=== PATIENT | male | born 2000 | race Caucasian/White ===

== ENCOUNTER 2020-10-11 20:39 | Emergency (ER) | payer OTHER, SELFPAY ==
[2020-10-11 20:43] VITALS: BP 122/59; PULSE 65; RESP 16; TEMP 36.3; O2SAT 98
--- NOTE | 2020-10-11 21:56 | ED_ITS ---
HPI - Eye Problem General Chief complaint: Eye Problems Stated complaint: right eye pain Time Seen by Provider: 10/11/20 21:15 Source: patient Mode of arrival: ambulatory Limitations: no limitations History of Present Illness HPI Narrative: Patient is a 19-year-old male complaining of possible foreign body in the right eye. Patient states that he was grinding fiberglass and felt like something went inside his eye. Denies any other pain or injury. Denies any blurred or loss of vision. Related Data Allergies Allergy/AdvReac Type Severity Reaction Status Date / Time No Known Allergies Allergy Unverified 08/21/14 22:39 Review of Systems Review of Systems: All systems reviewed & are unremarkable except as noted in HPI and below PMFSH Family History Family History (Updated 12/22/15 @ 23:19 by DOCTOR UNKNOWN) Father Hypertension Family history of diabetes mellitus in first degree relative Grandparent Hypertension Family history of lung cancer Social History Social History Smoking status: Never smoker Alcohol intake: never Comments Past medical history: None Social history: Non-smoker no EtOH or drug use Exam Const: General: healthy appearing, no acute distress and alert Nutritional Appearance: well nourished Orientation/consciousness: patient oriented x3 HENMT: Head: normal to inspection General nose exam: Normal nares present Face and sinus: normal facial exam Mouth: Yes moist mucous membranes Eyes: Conjunctivae: conjunctivae normal (Injected, right eye) Pupils: Equal, round and reactive pupils present EOM: EOMs intact bilaterally Other: Corneal abrasion right eye Course Vital Signs Vital signs: Vital Signs Temperature 36.3 C L 10/11/20 20:43 Pulse Rate 65 10/11/20 20:43 Respiratory Rate 16 10/11/20 20:43 Blood Pressure 122/59 L 10/11/20 20:43 Pulse Oximetry 98 10/11/20 20:43 Temperature 36.3 C L 10/11/20 20:43 Pulse Rate 65 10/11/20 20:43 Respiratory Rate 16 10/11/20 20:43 Blood Pressure 122/59 L 10/11/20 20:43 Pulse Oximetry 98 10/11/20 20:43 Procedures FB Removal Eye Foreign Body #1: Foreign Body Removal Date: 10/11/20 Foreign Body Removal Time: 22:00 Time Out performed: Yes Location: eye (R) Topical anesthetic used: tetracaine Evidence of corneal penetration: No Foreign Body Removal Narrative: No foreign body seen. Patient has corneal abrasion Discharge Plan Discharge Clinical Impression: Corneal abrasion Qualifiers: Encounter type: initial encounter Laterality: right Qualified Code(s): S05.01XA - Injury of conjunctiva and corneal abrasion without foreign body, right eye, initial encounter Patient Disposition: Home, Self-Care Condition: Improved Instructions: Antibiotic Form, Corneal Abrasion (ED) Prescriptions: New erythromycin 5 mg/gram (0.5 %) ointment 1.25 cm EACH EYE 6XD Qty: 3.5 RF: 0 Follow-up/Referrals: PHYSICIAN,INFRASTRUCTURE ENGINEER [Primary Care Provider] - Time of Disposition: 22:01
[2020-10-11] MEDS: ERYTHROMYCIN OPHTH OINTMENT 1 GM TUBE 1 APPLIC EACH EYE (22:25)
== END 2020-10-11 22:29 | disposition home or self-care (01) ==
PROVIDERS: Emergency Provider Emergency Medicine
DX: S05.01XA Injury of conjunctiva and corneal abrasion without foreign body, right eye, initial encounter (principal); X58.XXXA Exposure to other specified factors, initial encounter
CPT/HCPCS: 99283; A9270

== ENCOUNTER 2024-09-17 08:12 | Emergency (ER) | payer OTHER, SELFPAY ==
[2024-09-17 08:23] VITALS: BP 157/88; PULSE 68; RESP 20; TEMP 36.3; O2SAT 99
--- NOTE | 2024-09-17 08:30 | ED_ITS ---
HPI - General Adult General Chief complaint: Unspecified Stated complaint: work note stomach issues Time Seen by Provider: 09/17/24 08:30 Source: patient Mode of arrival: ambulatory Limitations: no limitations History of Present Illness HPI narrative: 23-year-old male presents with complaint diarrhea starting early this morning. Unable to go to work due to diarrhea. 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 No abdominal pain. States that diarrhea is improving. States diarrhea caused from something he ate. Patient is well-appearing. All systems reviewed and negative except as noted above. Related Data Home Medications ?Medication ?Instructions ?Recorded ?Confirmed ?Last Taken ?Type No Home Medications 09/03/21 07/08/24 Unknown History Allergies Allergy/AdvReac Type Severity Reaction Status Date / Time No Known Allergies Allergy Verified 09/17/24 08:20 Review of Systems Review of Systems: CONSTITUTIONAL: Denies fever, chills, or sweats. EYES: Denies visual changes, redness, or discharge. ENT: Denies rhinorrhea, congestion, sore throat, or otalgia. CARDIOVASCULAR: Denies chest pain, palpitations, or edema. RESPIRATORY: Denies cough or dyspnea. GASTROINTESTINAL: Denies abdominal pain, nausea, vomiting . Reports diarrhea. GENITOURINARY: Denies dysuria or hematuria. SKIN: Denies rash or itching. MUSCULOSKELETAL: Denies back pain, joint pain, or myalgia. NEUROLOGIC: Denies headache, numbness, or weakness. PSYCHIATRIC: Denies anxiety or depression. All other systems reviewed are negative, except as documented in HPI. [facility] Past Medical History Medical History BMI 36.0-36.9,adult Encounter for immunization (03/05/17) Family History Family History Father Hypertension Family history of diabetes mellitus in first degree relative Diabetes mellitus Grandparent Hypertension Family history of lung cancer Mother Diabetes mellitus Sibling No problems noted. Social History Social History Smoking status: Current every day smoker (vapes) Tobacco type: e-cigarettes/vaping Second hand tobacco smoke exposure: Yes Alcohol intake: current Substance use: never Substance use type: does not use Do You Feel Safe in your Home?: Yes Lack of Transportation: No Lack of Food: Never True Current Housing: I Have Housing Concerned About Future Housing: No Difficulty Paying Gas/Electric Bills: No Difficulty Paying for Meds: No Currently Unemployed: No Education: High School Diploma/GED Difficulty w/ Childcare or Family Care: No Living arrangements: with family Occupation/Education: occupation 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 There is no relevant family history pertinent to the presenting complaint. Exam Narrative: GENERAL: This is a well-nourished, well-developed patient, in no apparent distress. HEAD: normocephalic, atraumatic. EYES: PERRL. Sclera clear/white. Vision is grossly intact. EARS: External ears normal NOSE: External nose normal NECK: Neck supple, non-tender without lymphadenopathy, masses or thyromegaly. CARDIOVASCULAR: Regular rate and rhythm without murmurs, gallops, or rubs. RESPIRATORY: Clear to auscultation. Breath sounds equal bilaterally. No wheezes, rales, or rhonchi. GASTROINTESTINAL: Abdomen soft, non-tender, nondistended. Bowel sounds are active. No hepato-splenomegaly, or palpable masses. No guarding. SKIN: warm, Dry, intact with no suspicious lesions or rash, good texture and turgor. NEURO: awake, alert, and oriented to person, place and time. There were no obvious focal neurologic abnormalities. EXTREMITIES: No joint tenderness, effusion, or edema noted. Course Course Level of Care: Express Care Visit Vital Signs Vital signs: Vital Signs Temperature 36.3 C L 09/17/24 08:23 Pulse Rate 68 09/17/24 08:23 Respiratory Rate 20 09/17/24 08:23 Blood Pressure 157/88 H 09/17/24 08:23 Pulse Oximetry 99 09/17/24 08:23 Oxygen Delivery Room Air 09/17/24 08:23 Temperature 36.3 C L 09/17/24 08:23 Pulse Rate 68 09/17/24 08:23 Respiratory Rate 20 09/17/24 08:23 Blood Pressure 157/88 H 09/17/24 08:23 Pulse Oximetry 99 09/17/24 08:23 Oxygen Delivery Room Air 09/17/24 08:23 reviewed Medical Decision Making MDM Narrative Medical decision making narrative: patient is well-appearing, nontoxic. No tenderness on exam. Patient reports that diarrhea is improving. Here for work note. Please be advised this is a medical document. It is intended for [id number] communication. It is written in medical language and may contain unfamiliar abbreviations or verbiage. Medical documents are intended to carry relevant information, facts as evident, and the clinical opinion of the practitioner at the time of the encounter. This report may have been done utilizing a voice recognition system. Attempts have been made to correct errors. However, there may be uncorrected grammatical, spelling, and recognition errors present. The file time of this note does not necessarily represent the time of service. Vital Signs Vital Signs: Vital Signs Temperature 36.3 C L 09/17/24 08:23 Pulse Rate 68 09/17/24 08:23 Respiratory Rate 20 09/17/24 08:23 Blood Pressure 157/88 H 09/17/24 08:23 Pulse Oximetry 99 09/17/24 08:23 Oxygen Delivery Room Air 09/17/24 08:23 Temperature 36.3 C L 09/17/24 08:23 Pulse Rate 68 09/17/24 08:23 Respiratory Rate 20 09/17/24 08:23 Blood Pressure 157/88 H 09/17/24 08:23 Pulse Oximetry 99 09/17/24 08:23 Oxygen Delivery Room Air 09/17/24 08:23 Discharge Plan Discharge Clinical Impression: Diarrhea Patient Disposition: Home Condition: Stable Instructions: Acute Diarrhea (ED) Patient Language: Nepalese Prescriptions: No Action No Home Medications Follow-up/Referrals: Jasmeet Parekh MD [Primary Care Provider] - Stand Alone Forms: Work/School Release IP Time of Disposition: 08:34
== END 2024-09-17 08:40 | disposition home or self-care (01) ==
PROVIDERS: Emergency Provider Nurse Practitioner Family; PCP Family Medicine
DX: R19.7 Diarrhea, unspecified (principal); F17.290 Nicotine dependence, other tobacco product, uncomplicated
CPT/HCPCS: 99211; G0463

== ENCOUNTER 2024-11-12 08:35 | Emergency (ER) | payer OTHER, SELFPAY ==
[2024-11-12 08:49] VITALS: BP 136/82; PULSE 77; RESP 20; TEMP 36.7; O2SAT 99
--- NOTE | 2024-11-12 09:00 | ED_ITS ---
HPI - Nausea/Vomiting/Diarrhea General Chief complaint: Nausea/Vomiting/Diarrhea Stated complaint: Vomting/Diarrhea Time Seen by Provider: 11/12/24 09:00 Source: patient Mode of arrival: ambulatory Limitations: no limitations History of Present Illness HPI Narrative: 23-year-old male presents with complaint of nausea vomiting diarrhea starting this morning upon awakening. Patient states he has vomited twice and is now having loose stools. Patient reports history lactose intolerance. States he ate a lot of case toe last night in thinks symptoms are related to that. 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 Requesting work note. All systems reviewed and negative except as noted above. Related Data Allergies Allergy/AdvReac Type Severity Reaction Status Date / Time No Known Allergies Allergy Verified 11/12/24 09:10 Review of Systems Review of Systems: CONSTITUTIONAL: Denies fever, chills, or sweats. EYES: Denies visual changes, redness, or discharge. ENT: Denies rhinorrhea, congestion, sore throat, or otalgia. CARDIOVASCULAR: Denies chest pain, palpitations, or edema. RESPIRATORY: Denies cough or dyspnea. GASTROINTESTINAL: Denies abdominal pain . Reports nausea, vomiting, or carmina rrhea. GENITOURINARY: Denies dysuria or hematuria. SKIN: Denies rash or itching. MUSCULOSKELETAL: Denies back pain, joint pain, or myalgia. NEUROLOGIC: Denies headache, numbness, or weakness. PSYCHIATRIC: Denies anxiety or depression. All other systems reviewed are negative, except as documented in HPI. [facility] Past Medical History Medical History BMI 36.0-36.9,adult Encounter for immunization (03/05/17) Family History Family History Father Hypertension Family history of diabetes mellitus in first degree relative Diabetes mellitus Grandparent Hypertension Family history of lung cancer Mother Diabetes mellitus Sibling No problems noted. Social History Social History Smoking status: Current every day smoker (vapes) Tobacco type: e-cigarettes/vaping Second hand tobacco smoke exposure: Yes Alcohol intake: current Substance use: never Substance use type: does not use Do You Feel Safe in your Home?: Yes Lack of Transportation: No Lack of Food: Never True Current Housing: I Have Housing Concerned About Future Housing: No Difficulty Paying Gas/Electric Bills: No Difficulty Paying for Meds: No Currently Unemployed: No Education: High School Diploma/GED Difficulty w/ Childcare or Family Care: No Living arrangements: with family Occupation/Education: occupation 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 There is no relevant family history pertinent to the presenting complaint. Exam Narrative: GENERAL: This is a well-nourished, well-developed patient, in no apparent distress. HEAD: normocephalic, atraumatic. EYES: PERRL. Sclera clear/white. Vision is grossly intact. EARS: External ears normal NOSE: External nose normal NECK: Neck supple, non-tender without lymphadenopathy, masses or thyromegaly. CARDIOVASCULAR: Regular rate and rhythm without murmurs, gallops, or rubs. RESPIRATORY: Clear to auscultation. Breath sounds equal bilaterally. No wheezes, rales, or rhonchi. GASTROINTESTINAL: Abdomen soft, non-tender, nondistended. Bowel sounds are active. No hepato-splenomegaly, or palpable masses. No guarding. SKIN: warm, Dry, intact with no suspicious lesions or rash, good texture and turgor. NEURO: awake, alert, and oriented to person, place and time. There were no obvious focal neurologic abnormalities. EXTREMITIES: No joint tenderness, effusion, or edema noted. Course Course Level of Care: Express Care Visit Vital Signs Vital signs: Vital Signs Temperature 36.7 C 11/12/24 08:49 Pulse Rate 77 11/12/24 08:49 Respiratory Rate 20 11/12/24 08:49 Blood Pressure 136/82 11/12/24 08:49 Pulse Oximetry 99 11/12/24 08:49 Oxygen Delivery Room Air 11/12/24 08:49 Temperature 36.7 C 11/12/24 08:49 Pulse Rate 77 11/12/24 08:49 Respiratory Rate 20 11/12/24 08:49 Blood Pressure 136/82 11/12/24 08:49 Pulse Oximetry 99 11/12/24 08:49 Oxygen Delivery Room Air 11/12/24 08:49 reviewed MDM - Nausea/Vomiting/Diarrhea MDM Narrative Medical decision making narrative: patient is well-appearing, nontoxic. No nausea vomiting or diarrhea while At Express Care. no abdominal tenderness on exam. Recommend hydration, rest. Will see primary care physician if symptoms not improving. Differential Diagnosis Differential diagnosis: Likely food poisoning, gastroenteritis and dehydration Discharge Plan Discharge Clinical Impression: Nausea vomiting and diarrhea Patient Disposition: Home Condition: Stable Instructions: Acute Nausea and Vomiting (ED) Additional Instructions: take medications as prescribed. This medication may cause constipation and abdominal bloating. Drink at least 64 oz water a day. See your doctor if symptoms are not improving. Patient Language: Cymraes Prescriptions: New ondansetron 4 mg tablet,disintegrating 4 mg PO Q8H PRN (Reason: nausea and vomiting) Qty: 12 0RF Follow-up/Referrals: Jasmeet Parekh MD [Primary Care Provider] - Stand Alone Forms: Work/School Release IP Time of Disposition: 09:05
== END 2024-11-12 09:15 | disposition home or self-care (01) ==
PROVIDERS: Emergency Provider Nurse Practitioner Family; PCP Family Medicine
DX: R11.2 Nausea with vomiting, unspecified (principal); R19.7 Diarrhea, unspecified; F17.290 Nicotine dependence, other tobacco product, uncomplicated
CPT/HCPCS: 99213; G0463

== ENCOUNTER 2025-02-16 08:39 | Emergency (ER) | payer OTHER, SELFPAY ==
[2025-02-16 08:49] VITALS: BP 135/89; PULSE 70; RESP 16; TEMP 36.7; O2SAT 99
--- NOTE | 2025-02-16 09:26 | ED_ITS ---
HPI - General Adult General Chief complaint: Nausea/Vomiting/Diarrhea Stated complaint: VOMITING/DIARRHEA Source: patient Mode of arrival: ambulatory Limitations: no limitations History of Present Illness HPI narrative: patient is a pleasant 24-year-old male presenting with complaint of nausea, vomiting, diarrhea. Symptoms began last night. He denies presence of blood in stool or emesis. denies mucus in stool. He does report that his girlfriend had similar symptoms prior to onset of his symptoms, girlfriend works around young children. No recent antibiotic use. No recent travel. No known exposure to e xpired foods. No treatment initiated prior to arrival. Does report significant improvement in symptoms since onset. 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 No additional complaints. Related Data Allergies Allergy/AdvReac Type Severity Reaction Status Date / Time No Known Allergies Allergy Verified 02/16/25 08:59 Review of Systems Review of Systems: CONSTITUTIONAL: Denies body aches, fever, chills, or sweats. EYES: Denies visual changes, redness, or discharge. ENT: Denies rhinorrhea, congestion, sore throat, or otalgia. CARDIOVASCULAR: Denies chest pain, palpitations, or edema. RESPIRATORY: Denies cough or dyspnea. GASTROINTESTINAL: Reports nausea, vomiting, diarrhea.Denies abdominal pain GENITOURINARY: Denies dysuria or hematuria. SKIN: Denies rash, itching, or wounds. MUSCULOSKELETAL: Denies back pain, joint pain, or myalgia. NEUROLOGIC: Denies headache, numbness, tingling, or weakness. PSYCH: Denies depression or anxiety. [facility] Past Medical History Medical History BMI 36.0-36.9,adult Encounter for immunization (03/05/17) Family History Family History Father Hypertension Family history of diabetes mellitus in first degree relative Diabetes mellitus Grandparent Hypertension Family history of lung cancer Mother Diabetes mellitus Sibling No problems noted. Social History Social History Smoking status: Current every day smoker (vapes) Tobacco type: e-cigarettes/vaping Second hand tobacco smoke exposure: Yes Alcohol intake: current Substance use: never Substance use type: does not use Do You Feel Safe in your Home?: Yes Lack of Transportation: No Lack of Food: Never True Current Housing: I Have Housing Concerned About Future Housing: No Difficulty Paying Gas/Electric Bills: No Difficulty Paying for Meds: No Currently Unemployed: No Education: High School Diploma/GED Difficulty w/ Childcare or Family Care: No Living arrangements: with family Occupation/Education: occupation 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 HEAD: Normocephalic, atraumatic. EYES: EOMI. No redness or drainage. Conjunctivae normal. ENT: Mucous membranes pink and moist. NECK: Normal AROM. Supple. CHEST: No respiratory distress. Clear to auscultation. HEART: Regular rate and rhythm. No murmur appreciated. Normal peripheral pulses. ABDOMEN: Soft, nontender, nondistended, normal active bowel sounds. MUSCULOSKELETAL: No bony tenderness. EXTREMITIES: Normal range of motion. No edema. SKIN: Warm, dry, no rash. Capillary refill normal. Normal skin turgor. NEURO: No focal deficits. Alert and oriented x3. Gait steady. PSYCH: Normal affect. No signs of depression or anxiety. Course Course Level of Care: Express Care Visit Vital Signs Vital signs: Vital Signs Temperature 98.1 F 02/16/25 08:49 Pulse Rate 70 02/16/25 08:49 Respiratory Rate 16 02/16/25 08:49 Blood Pressure 135/89 02/16/25 08:49 Pulse Oximetry 99 02/16/25 08:49 Temperature 98.1 F 02/16/25 08:49 Pulse Rate 70 02/16/25 08:49 Respiratory Rate 16 02/16/25 08:49 Blood Pressure 135/89 02/16/25 08:49 Pulse Oximetry 99 02/16/25 08:49 Medical Decision Making MDM Narrative Medical decision making narrative: Discussed elevated blood pressure readings with patient and advised daily BP monitoring and f/u with PCP if persisting. Vital Signs Vital Signs: Vital Signs Temperature 98.1 F 02/16/25 08:49 Pulse Rate 70 02/16/25 08:49 Respiratory Rate 16 02/16/25 08:49 Blood Pressure 135/89 02/16/25 08:49 Pulse Oximetry 99 02/16/25 08:49 Temperature 98.1 F 02/16/25 08:49 Pulse Rate 70 02/16/25 08:49 Respiratory Rate 16 02/16/25 08:49 Blood Pressure 135/89 02/16/25 08:49 Pulse Oximetry 99 02/16/25 08:49 Discharge Plan Discharge Clinical Impression: Elevated blood pressure reading in office without diagnosis of hypertension Nausea & vomiting Qualifiers: Vomiting type: unspecified Qualified Code(s): R11.2 - Nausea with vomiting, unspecified Diarrhea Qualifiers: Diarrhea type: unspecified type Qualified Code(s): R19.7 - Diarrhea, unspecified Patient Disposition: Home Condition: Stable Instructions: Gastroenteritis (ED) Additional Instructions: Go straight to ER should your symptoms become worse or should any new symptoms develop Patient Language: Macedonian Follow-up/Referrals: Jasmeet Parekh MD [Primary Care Provider, Family Practice] - 02/17/25 Stand Alone Forms: Work/School Release IP Time of Disposition: :
== END 2025-02-16 09:24 | disposition home or self-care (01) ==
PROVIDERS: Emergency Provider Registered Nurse; PCP Family Medicine
DX: R03.0 Elevated blood-pressure reading, without diagnosis of hypertension (principal); R11.2 Nausea with vomiting, unspecified; R19.7 Diarrhea, unspecified; F17.290 Nicotine dependence, other tobacco product, uncomplicated
CPT/HCPCS: 99211; G0463

== ENCOUNTER 2025-04-20 10:36 | Emergency (ER) | payer OTHER, SELFPAY ==
[2025-04-20 10:42] VITALS: BP 151/88; PULSE 82; RESP 18; TEMP 36.8; O2SAT 100
--- NOTE | 2025-04-20 10:42 | ED.HA ---
HPI - Headache General Chief Complaint: Headache Stated Complaint: Head Pain Time Seen by Provider: 04/20/25 10:36 Source: patient Mode of arrival: ambulatory Limitations: no limitations History of Present Illness HPI Narrative: Eagle is a 24 year old male patient presenting to the clinic today with c/o headache x1 day. He report he called in to work today and is needing a work note. Headache has improved after taking Excedrin. His pain currently is 6/10. Was experiencing some nausea, light sensitivity, and sensitivity loud noises. States that this has all improved. Does have nasal congestion over the last 2-3 days. Was out over the weekend hunting and was exposed to the moist cool weather. Denies any fevers, chills, or body aches. Patient has been using Flonase but has now ran out of the Flonase. Denies any dizziness or visual changes. Related Data Home Medications ?Medication ?Instructions ?Recorded ?Confirmed ?Last Taken ?Type fluticasone propionate 50 intranasal 04/20/25 Unknown History mcg/actuation nasal spray,suspension Allergies Allergy/AdvReac Type Severity Reaction Status Date / Time No Known Allergies Allergy Verified 04/20/25 10:41 Review of Systems Review of Systems: Pertinent positives per HPI. Patient denies any fever, chills, rash, visual changes, dizziness, cough, sore throat, shortness of breath, chest pain, palpitations, nausea, vomiting, diarrhea, constipation, abdominal pain, or any urinary issues. [facility] Past Medical History Medical History BMI 36.0-36.9,adult Encounter for immunization (03/05/17) Family History Family History Father Hypertension Family history of diabetes mellitus in first degree relative Diabetes mellitus Grandparent Hypertension Family history of lung cancer Mother Diabetes mellitus Sibling No problems noted. 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 There is no relevant family history pertinent to the patient complaint. Exam Narrative: General: Well-developed, obese, in no apparent distress Head: Normocephalic, atraumatic Eyes: Pupils equally round and reactive to light bilaterally, EOM intact, sclera and conjunctive clear, no discharge, lids normal Ears: TMs intact and clear, ear canals clear, no drainage, grossly hearing normal. Nose: Nares patent, clear nasal discharge, mild inflammation, no sinus tenderness. Mouth: Oropharynx without lesions or masses, good dentition, MMM. Tongue midline, even rise and fall of uvula Neck: Supple, trachea midline, no enlargement of anterior or posterior cervical nodes, no thyroid masses or goiter palpable. Cardio: Regular rate and rhythm, s1 and s2 normal, no murmur appreciated. Resp: Clear to auscultation bilaterally anteriorly and posteriorly, no rhonchi, rales, wheezing or rubs Musculoskeletal: No deformity, non-tender to palpation, grossly normal range of motion, muscle strength strong and equal, peripheral pulse strong, no edema, no cyanosis, normal gait and station Neuro: Alert and oriented x4 with normal speech, no focal deficits, cranial nerves I through XII intact, muscle strength 5 out of 5, sensation intact bilaterally, negative Romberg test Course Course Emergency Course: Portions of this record may have been created with voice recognition software. Level of Care: Express Care Visit Vital Signs Vital signs: Vital signs reviewed MDM - Headache MDM Narrative Medical decision making narrative: At the time of visit patient is resting comfortably on the exam table. Patient appears to be nontoxic. C/o headache x1 day. He report he called in to work today and is needing a work note. Headache has improved after taking Excedrin. His pain currently is 6/10. Was experiencing some nausea, light sensitivity, and sensitivity loud noises. States that this has all improved. Does have nasal congestion over the last 2-3 days. Was out over the weekend hunting and was exposed to the moist cool weather. Denies any fevers, chills, or body aches. Patient has been using Flonase but has now ran out of the Flonase. Denies any dizziness or visual changes. On exam patient has TMs intact and clear, clear nasal drainage, mild anterior turbinate inflammation, oral pharynx normal, no cervical lymphadenopathy, lung sounds are clear, heart rates regular rate and rhythm, neuro exam is normal. Plan: I suspect patient has acute headache with URI. Work note was given per request. Refill of Flonase was sent to the pharmacy. Supportive measures were discussed with the patient and they voiced understanding discharge instructions and agrees to treatment plan. Return precautions reviewed Differential Diagnosis Differential diagnosis: Likely migraine, tension headache, subarachnoid hemorrhage, headache, meningitis, sinusitis and other (COVID) Discharge Plan Discharge Clinical Impression: Headache Qualifiers: Headache type: unspecified Headache chronicity pattern: acute headache Intractability: not intractable Qualified Code(s): R51.9 - Headache, unspecified URI (upper respiratory infection) Qualifiers: URI type: unspecified URI Qualified Code(s): J06.9 - Acute upper respiratory infection, unspecified Patient Disposition: Home Condition: Stable Instructions: Antibiotic Form, Acute Headache (ED), Cold Symptoms (ED) Additional Instructions: Go home and rest in a cool dark place Increase fluids and stay well hydrated May take Tylenol or motrin as directed on bottle for pain/fever May use Flonase 1 spray in each nare daily May take OTC antihistamines such as Zyrtec or Claritin daily as directed on bottle May apply Vicks vapor rub to chest to open sinuses Sinus rinses for congestion Cepacol spray, cough drops, throat lozenges, warm tea with honey/lemon, gargle salt water to soothe throat BRAT diet for diarrhea Clear liquids x 24 hours then advance as tolerated for nausea/vomiting Go to the ED if you develop a worsening in your condition- high fever not controlled by Tylenol or Motrin, dehydration, weakness, lethargy, shortness of breath, or chest pain. Follow up with your PCP in 3-5 days if symptoms persist. Patient Language: Greenlandic Prescriptions: New fluticasone propionate [Flonase Allergy Relief] 50 mcg/actuation spray,suspension 1 spray intranasal DAILY 30 Days Qty: 16 0RF Rx Instructions: administer into each nostril No Action fluticasone propionate 50 mcg/actuation spray,suspension INTRANASAL Follow-up/Referrals: UNKNOWN,DOCTOR [Non-Staff] Stand Alone Forms: Work/School Release IP Time of Disposition: 10:48 Quality NIHSS Nursing Documentation ED NIHSS nursing documentation: reviewed/agree
== END 2025-04-20 10:55 | disposition home or self-care (01) ==
PROVIDERS: Emergency Provider Nurse Practitioner Family; PCP Family Medicine
DX: J06.9 Acute upper respiratory infection, unspecified (principal); R51.9 Headache, unspecified; F17.290 Nicotine dependence, other tobacco product, uncomplicated
CPT/HCPCS: 99213; G0463